=== PATIENT | female | born 1970 | race Caucasian/White ===

== ENCOUNTER 2021-09-28 11:20 | Emergency (ER) | payer OTHER ==
[~2021-09-28] VITALS: Ht 167.6 cm; Wt 77.1 kg
[2021-09-28 14:23] VITALS: BP 138/87
== END 2021-09-28 15:07 | disposition home or self-care (01) ==
LOC: ER 11:20
DX: M25.522 Pain in left elbow (principal); M25.512 Pain in left shoulder; Z90.49 Acquired absence of other specified parts of digestive tract